=== PATIENT | female | born 1995 | race Caucasian/White ===

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

== ENCOUNTER → 2017-07-27 | Outpatient (CLI) | payer OTHER | END | disposition home or self-care (01) | LOC: C.LABMFLN 14:11 | PROVIDERS: ATTEND Family Medicine | DX: R31.0 Gross hematuria (principal) ==